=== PATIENT | female | born 1990 | race Two or more races ===

== ENCOUNTER 2024-07-01 15:41 | Outpatient (CLI) | payer OTHER | END 2024-07-01 15:46 | disposition home or self-care (01) | LOC: PRENATAL 15:41 | PROVIDERS: ATTEND Obstetrics & Gynecology Maternal & Fetal Medicine | DX: O36.80X0 Pregnancy with inconclusive fetal viability, not applicable or unspecified (principal); Z36.82 Encounter for antenatal screening for nuchal translucency; Z14.8 Genetic carrier of other disease; O26.859 Spotting complicating pregnancy, unspecified trimester; Z3A.13 13 weeks gestation of pregnancy ==

== ENCOUNTER 2024-08-25 08:07 | Outpatient (CLI) | payer OTHER | END 2024-08-25 08:08 | disposition home or self-care (01) | LOC: PRENATAL 08:07 | PROVIDERS: ATTEND Obstetrics & Gynecology Maternal & Fetal Medicine | DX: O44.00 Complete placenta previa NOS or without hemorrhage, unspecified trimester (principal); Z3A.21 21 weeks gestation of pregnancy ==

== ENCOUNTER → 2024-10-21 14:27 | Outpatient (CLI) | payer OTHER | END | disposition home or self-care (01) | LOC: PRENATAL 14:27 | PROVIDERS: ATTEND Obstetrics & Gynecology Maternal & Fetal Medicine | DX: O26.849 Uterine size-date discrepancy, unspecified trimester (principal); O43.90 Unspecified placental disorder, unspecified trimester; Z3A.29 29 weeks gestation of pregnancy ==

== ENCOUNTER 2024-11-30 14:20 | Outpatient (CLI) | payer OTHER | END 2024-11-30 14:27 | disposition home or self-care (01) | LOC: PRENATAL 14:20 | PROVIDERS: ATTEND Obstetrics & Gynecology Maternal & Fetal Medicine | DX: O26.849 Uterine size-date discrepancy, unspecified trimester (principal); O36.8199 Decreased fetal movements, unspecified trimester, other fetus; O43.90 Unspecified placental disorder, unspecified trimester; Z3A.35 35 weeks gestation of pregnancy ==

== ENCOUNTER 2024-12-31 12:45 | Inpatient (IN) | payer OTHER ==
[~2024-12-31] VITALS: Ht 162.6 cm; Wt 77.6 kg
[2024-12-31 13:43] LABS: BASO % 0.2 % (0.1-1.2); EOS # 0.03 (0.04-0.54); EOS % 0.4 % (0.7-7.0); LYMPH # 1.11 (1.18-3.74); LYMPH % 13.5 % (19.3-53.1); MEAN PLATELET VOLUME 10.70 fl (9.4-12.4); MONO # 0.59 (0.24-0.82); MONO % 7.2 % (4.7-12.5); NEUT # 6.37 (1.56-6.13); NEUT % 77.2 % (34.0-71.1); RED CELL DISTRIBUTION WIDTH 13.0 % (11.6-14.4)
[2024-12-31 14:05] LABS: INR 0.95
[2024-12-31 14:29] LABS: ALT/SGPT 33.0 U/L (12-78); AST/SGOT 23.0 U/L (15-37); BILIRUBIN TOTAL 0.47 mg/dL (0.3-1.2); BUN CREA RATIO 17.0 (7.0-25.0); CREATININE SERUM 0.53 mg/dL (0.55-1.02); GFR 132.05; GLOBULINA 3.6 G/DL (2.4-3.5); GLUCOSE FASTING 71.0 mg/dL (65-100); OSMOLALITY SERUM 277.0 MOSM/KG (275-295)
[2025-01-04] VITALS (10 sets, daily range): BP systolic 100–137; BP diastolic 52–80
[2025-01-04] MEDS ORDERED: PRENATABS FA T1 EACH PO (03:05)
[2025-01-04] MEDS ORDERED: RINGERS SOLUTION,LACTATED 1,000 ML IV SCH (03:15)
[2025-01-04] MEDS ORDERED: ONDANSETRON HCL 2 MG/ML VIAL ONE (06:29)
[2025-01-04] MEDS ORDERED: FAMOTIDINE/PF 20 MG/2 ML VIAL IV SCH (06:45)
[2025-01-04] MEDS ORDERED: ONDANSETRON HCL 2 MG/ML VIAL IV NR (07:00)
[2025-01-04] MEDS ORDERED: OXYTOCIN 500 ML IV SCH (07:45)
[2025-01-04] MEDS ORDERED: PROMETHAZINE HCL 25 MG/ML AMPUL IV ONE (10:00)
[2025-01-04] MEDS ORDERED: OXYTOCIN 20 UNITS/1000ML RL PIGGYBAG IV ONE (15:36)
[2025-01-04] MEDS ORDERED: CHLORHEXIDINE GLUCONATE 120 ML BOTTLE TOP ONE ×2 (15:36→17:00)
[2025-01-04] MEDS ORDERED: ERYTHROMYCIN BASE OPHT 1GM EACH TUBE OP ONE ×2 (15:36→17:30)
[2025-01-04] MEDS ORDERED: LIDOCAINE HCL 1% 10ML VIAL ONE (15:37)
[2025-01-04] MEDS ORDERED: CEFAZOLIN SODIUM 1,000 MG VIAL ONE (16:29)
[2025-01-04] MEDS ORDERED: METRONIDAZOLE/SODIUM CHLORIDE 500 MG/100 ML PIGGYBACK IV ONE (17:00)
[2025-01-04] MEDS ORDERED: OXYTOCIN 1,000 ML IV SCH (17:00)
[2025-01-04] MEDS ORDERED: ACETAMINOPHEN 500 MG GEL..CAP PO PRN (17:00)
[2025-01-04] MEDS ORDERED: CEFAZOLIN SODIUM 1,000 MG VIAL IV ONE (17:15)
[2025-01-04] MEDS ORDERED: LIDOCAINE HCL 1% 10ML VIAL IJ ONE (17:30)
[2025-01-04 22:16] LABS: BASO % 0.1 % (0.1-1.2); EOS # 0.01 (0.04-0.54); EOS % 0.1 % (0.7-7.0); LYMPH # 1.07 (1.18-3.74); LYMPH % 6.7 % (19.3-53.1); MEAN PLATELET VOLUME 10.60 fl (9.4-12.4); MONO # 1.19 (0.24-0.82); MONO % 7.4 % (4.7-12.5); NEUT # 13.68 (1.56-6.13); NEUT % 84.9 % (34.0-71.1); RED CELL DISTRIBUTION WIDTH 12.7 % (11.6-14.4)
[2025-01-05] VITALS: BP 98/58
[2025-01-05 08:11] VITALS: BP 98/62
[2025-01-05 13:37] VITALS: BP 101/64
[2025-01-05 17:47] VITALS: BP 116/73
[2025-01-06 00:23] VITALS: BP 104/69
[2025-01-06 08:00] VITALS: BP 123/78
== END 2025-01-06 12:09 | disposition home or self-care (01) | DRG 807 ==
LOC: LDR 01-04 02:52 → OB/GYN 01-04 17:48 → LDR 01-09 14:15
PROVIDERS: ADMIT General Practice; ATTEND General Practice
PROC: 10E0XZZ Delivery of Products of Conception, External Approach (ICD-10-PCS; principal; 2025-01-04)
PROC: 0UQG7ZZ Repair Vagina, Via Natural or Artificial Opening (ICD-10-PCS; 2025-01-04)
PROC: 4A1HXCZ Monitoring of Products of Conception, Cardiac Rate, External Approach (ICD-10-PCS; 2025-01-04)
DX: O71.4 Obstetric high vaginal laceration alone (principal); O42.02 Full-term premature rupture of membranes, onset of labor within 24 hours of rupture; O69.81X0 Labor and delivery complicated by cord around neck, without compression, not applicable or unspecified; Z37.0 Single live birth; Z3A.39 39 weeks gestation of pregnancy